=== PATIENT | female | born 1935 | race Caucasian/White ===

== ENCOUNTER → 2016-08-12 | Outpatient (CLI) | payer MEDICARE, BC ==
[~2016-08-12] MED LIST: ALEVE220 M1 OP; ASA325 MG PO; CALCIUM 600 +1 EA16 PO; DAILY MULTIPLE1 EAC1 PO; FISH OIL 1,2001 EAC3 PO; GLUCOSAMINE/CHO1 TAB PO; MIRALAX PACKET17 GM PO; PROTONIX40 MG PO; SENOKOT S1 TAB PO; TYLENOL DPS325 MG PO; ULTRAM DPS50 MG PO
== END | disposition home or self-care (01) ==
LOC: RAD.S 07-29 16:12
DX: Z12.31 Encounter for screening mammogram for malignant neoplasm of breast (principal); Z13.820 Encounter for screening for osteoporosis; Z78.0 Asymptomatic menopausal state; R92.1 Mammographic calcification found on diagnostic imaging of breast; M85.859 Other specified disorders of bone density and structure, unspecified thigh

== ENCOUNTER → 2016-08-26 | Outpatient (CLI) | payer MEDICARE, BC | END | disposition home or self-care (01) | LOC: PTH.S 07:43 | DX: Z01.812 Encounter for preprocedural laboratory examination (principal) ==